=== PATIENT | male | born 1990 | race Caucasian/White ===

== ENCOUNTER → 2017-03-13 | Outpatient (REF) | payer OTHER, BC | LOC: M LAB REF 17:21 | PROVIDERS: ATTEND Physician Assistant | DX: J02.9 Acute pharyngitis, unspecified (principal) ==

== ENCOUNTER → 2022-08-21 | Outpatient (CLI) | payer BC | LOC: M WUC 10:57 | PROVIDERS: ATTEND Physician Assistant | DX: M76.51 Patellar tendinitis, right knee (principal) ==

== ENCOUNTER → 2024-12-04 | Outpatient (REF) | payer BC ==
[2024-12-04 13:51] LABS: SEMEN APPEARANCE OPAQUE (OPAQUE); SEMEN VISCOSITY LIQUID (LIQUID); SEMEN VOLUME 1.5 ml (2.0-5.0)
[2024-12-04 13:52] LABS: SPERM CONCENTRATION 156.2 M/ml (>=15.0); TOTAL PROGRESSIVE SPERM 92.8 M/Ejac.; WBC CONCENTRATION <=1 M/ml (<=1 M/ml)
== END ==
LOC: M LAB REF 13:29
PROVIDERS: ATTEND Physician Assistant
DX: N46.9 Male infertility, unspecified (principal)